=== PATIENT | female | born 1990 | race Caucasian/White ===

== ENCOUNTER 2018-03-17 08:46 | Emergency (ER) | payer BC ==
[~2018-03-17] VITALS: Ht 157.5 cm; Wt 49.0 kg
[2018-03-17 08:51] VITALS: BP 123/74
== END 2018-03-17 09:15 | disposition home or self-care (01) ==
LOC: ER 08:47
DX: S09.90XA Unspecified injury of head, initial encounter (principal); Z88.2 Allergy status to sulfonamides; Z88.8 Allergy status to other drugs, medicaments and biological substances; Z60.2 Problems related to living alone; W01.198A Fall on same level from slipping, tripping and stumbling with subsequent striking against other object, initial encounter; Y93.31 Activity, mountain climbing, rock climbing and wall climbing; Y92.89 Other specified places as the place of occurrence of the external cause; Y99.8 Other external cause status
CPT/HCPCS: A4606; Z7502; Z7610